=== PATIENT | female | born 1970 | race Caucasian/White ===

== ENCOUNTER → 2019-05-10 | Outpatient (CLI) | payer OTHER ==
[2019-05-10 13:07] LABS: IRON 49.5 ug/dL (37-170)
[2019-05-10 13:41] LABS: FERRITIN 9.06 ng/mL (11.1-264.0)
== END ==
LOC: OD 11:34
PROVIDERS: ATTEND Family Medicine
DX: R20.2 Paresthesia of skin (principal)
CPT/HCPCS: 36415; 82306; 82607; 82728; 83540; 84443

== ENCOUNTER → 2019-08-23 | Outpatient (CLI) | payer OTHER | LOC: OD 12:41 | PROVIDERS: ATTEND Family Medicine | DX: E34.9 Endocrine disorder, unspecified (principal) | CPT/HCPCS: 36415; 84702 ==

== ENCOUNTER → 2019-09-03 | Outpatient (CLI) | payer OTHER ==
--- NOTE | 2019-09-03 18:19 | RADIOLOGY REPORT (SQ) ---
EXAM DESCRIPTION: U/S NON-OB PELVIS W/O DOP COMPLETED DATE/TIME: 09/03/2019 6:06 pm REASON FOR STUDY: (E34.9)ENDOCRINE DISORDER, UNSPECIFIED E34.9 ENDOCRINE DISORDER, UNSPECIFIED COMPARISON: None. TECHNIQUE: Dynamic and static grayscale images acquired of the pelvis via transabdominal approach an d recorded on PACS. Additional selected color Doppler and spectral images recorded. LIMITATIONS: None. FINDINGS: UTERUS: Contour normal. No mass. ENDOMETRIAL STRIPE: No focal or generalized thickening. No masses. History of ablation 2 years earli er. CERVIX: 3.6 cm. No nabothian cysts. RIGHT OVARY AND DOPPLER: Normal size. No worrisome masses. Normal arterial vascular flow without evid ence for torsion. LEFT OVARY AND DOPPLER: Normal size. No worrisome masses. Normal arterial vascular flow without evide nce for torsion. FREE FLUID: None noted. OTHER: No other significant finding. MEASUREMENTS: UTERUS: 8.4 x 3 x 4.4 cm. ENDOMETRIAL STRIPE: 6 mm. RIGHT OVARY: 2.5 x 1.8 x 2.2 cm. LEFT OVARY: 2.3 x 2.7 x 1.7 cm. IMPRESSION: NORMAL PELVIC ULTRASOUND BY TRANSABDOMINAL TECHNIQUE. TECHNICAL DOCUMENTATION: JOB ID: [id number] [employer]- All Rights Reserved Rev-01/26 Reading location - IP/workstation name: [email or web address]
== END ==
LOC: RAD 17:40
PROVIDERS: ATTEND Family Medicine
DX: E34.9 Endocrine disorder, unspecified (principal)
CPT/HCPCS: 76856

== ENCOUNTER 2019-09-05 17:05 | Emergency (ER) | payer OTHER ==
[2019-09-05] MEDS ORDERED: DEXAMETHASONE SOD PHOS INJ 10 MG/1 ML VIAL IM ONE (20:22)
[2019-09-05] MEDS ORDERED: KETOROLAC TROMETHAMINE 60 MG/2 ML SDV IM ONE (20:22)
[2019-09-05] MEDS ORDERED: CYCLOBENZAPRINE HCL 10 MG TABLET PO ONE (20:22)
--- NOTE | 2019-09-05 20:25 | ER Document Report ---
ED Medical Screen (RME) - General Chief Complaint: Back Pain Stated Complaint: BACK PAIN Time Seen by Provider: 09/05/19 20:12 Primary Care Provider: MARY MESSINA MD [Primary Care Provider] - Follow up as needed Mode of Arrival: Ambulatory Information source: Patient Notes: 49-year-old female with history of carotid aneurysm back surgeries, abdominal surgeries presents emergency department with complaints of severe low back pain. Reports she works on the floor 12 hours she has not voided. She reports she was off work for over 2 months and just returned to work 2 weeks ago. She is done several 12-hour shifts. She is complaining of severe low back pain . She denies fever vomiting diarrhea. She denies urinary or bowel incontinence or retention. She does report numbness and tingling going down the back of her legs. She has had steroid injections into her back. Patient also reports she recently was diagnosed with high hCG levels and they are trying to figure out what is going on. Denies pain with void. I have greeted and performed a rapid initial assessment of this patient. A comprehensive ED assessment and evaluation of the patient, analysis of test results and completion of the medical decision making process will be conducted by additional ED providers. TRAVEL OUTSIDE OF THE [place] IN LAST 30 DAYS: No - Related Data Allergies/Adverse Reactions: levofloxacin [From Levaquin] Allergy (Verified 06/26/19 17:38) Past Medical History - Past Medical History Cardiac Medical History: Reports: Hx Hypertension Neurological Medical History: Reports: Hx Migraine Past Surgical History: Reports: Hx Abdominal Surgery - exp lap x2 /bowel resection/hernia x2, Hx Section - x 4, Hx Cholecystectomy, Hx Orthopedic Surgery - x3 lumbar, Hx Tubal Ligation, Hx Vascular Surgery - right carotid stent Physical Exam - Vital signs Vitals: Temp Pulse Resp BP Pulse Ox 98.7 F 70 18 120/74 95 09/05/19 17:29 09/05/19 17:29 09/05/19 17:29 09/05/19 17:29 09/05/19 17:29 Course - Vital Signs Vital signs: Temp Pulse Resp BP Pulse Ox 98.7 F 70 18 120/74 95 09/05/19 17:29 09/05/19 17:29 09/05/19 17:29 09/05/19 17:29 12/26/19 17:29 Doctor's Discharge - Discharge Referrals: MARY MESSINA MD [Primary Care Provider] - Follow up as needed
[2019-09-05 21:29] LABS: APPEARANCE,URINE SLIGHTLY-CLOUDY; BILIRUBIN,URINE NEGATIVE (NEGATIVE); COLOR,URINE YELLOW; GLUCOSE, URINE NEGATIVE (NEGATIVE); KETONES,URINE TRACE mg/dL (NEGATIVE); LEUKOCYTE ESTERASE,URINE NEGATIVE (NEGATIVE); NITRITE,URINE NEGATIVE (NEGATIVE); PROTEIN,URINE NEGATIVE (NEGATIVE); URINE SPECIFIC GRAVITY 1.025
[2019-09-06] MEDS ORDERED: OXYCODONE-ACETAMINOPHEN 5-325 MG TABLET PO ONE (00:14)
--- NOTE | 2019-09-06 00:17 | ER Document Report ---
HPI - HPI Time Seen by Provider: 09/05/19 20:12 Pain Level: 5 Context: Patient is a 49-year-old female that comes to the emergency department for chief complaint of lower back pain. She states she just went back to work working as a [employer], has been very active with her work and especially over the last 2 days she has started having sharp pains in her back with occasional radiation mainly down the right leg. She denies numbness, incontinence, impact injury, fever/chi lls, history of IV drug abuse. She has had 3 lumbar surgeries in the past including rods and discectomy. She does not currently have a spinal surgeon. Patient states she has been taking ibuprofen without any results, she was given Flexeril and Toradol along with dexamethasone and still has some pain but no severe pain. She denies any other complaints. - CONSTITUTIONAL Constitutional: DENIES: Fever, Chills - EENT EENT: DENIES: Sore Throat, Ear Pain, Eye problems - NEURO Neurology: DENIES: Headache, Weakness, Vision blurred, Dizzinesss / Vertigo - CARDIOVASCULAR Cardiovascular: DENIES: Chest pain - RESPIRATORY Respiratory: DENIES: Trouble Breathing, Coughing - GASTROINTESTINAL Gastrointestinal: DENIES: Abdominal Pain, Black / Bloody Stools - URINARY Urinary: DENIES: Dysuria, Urgency, Frequency - REPRODUCTIVE Reproductive: DENIES: : - MUSCULOSKELETAL Musculoskeletal: DENIES: Extremity pain Past Medical History - General Information source: Patient - Social History Smoking Status: Current Every Day Smoker Frequency of alcohol use: None Drug Abuse: None Lives with: Family Family History: Reviewed & Not Pertinent Patient has suicidal ideation: No Patient has homicidal ideation: No - Past Medical History Cardiac Medical History: Reports: Hx Heart Attack, Hx Hypertension Neurological Medical History: Reports: Hx Migraine Past Surgical History: Reports: Hx Abdominal Surgery - exp lap x2 /bowel resection/hernia x2, Hx Section - x 4, Hx Cholecystectomy, Hx Orthopedic Surgery - x3 lumbar, Hx Tubal Ligation, Hx Vascular Surgery - right carotid stent - Immunizations Hx Diphtheria, Pertussis, Tetanus Vaccination: Yes Vertical Provider Document - CONSTITUTIONAL General Appearance: WD/WN, No Apparent Distress - Pain with position changes but otherwise she is unremarkable in appearance - INFECTION CONTROL TRAVEL OUTSIDE OF THE [place] IN LAST 30 DAYS: No - HEENT HEENT: Atraumatic, Normal ENT Exam, Normocephalic - NECK Neck: Normal Inspection - RESPIRATORY Respiratory: Breath Sounds Normal, No Respiratory Distress - CARDIOVASCULAR Cardiovascular: Regular Rate, Regular Rhythm. negative: Tachycardia - GI/ABDOMEN Gastrointestinal: Abdomen Soft, Abdomen Non-Tender. negative: Abdomen Tender - BACK Back: negative: Normal Inspection - Positive straight leg raise on the right. Tender over the right paralumbar and right gluteal muscules; no midline tenderness, no saddle anesthesia, no signs of trauma. Normal upper and lower extremity range of motion, normal strength, normal distal neurovascular exam. - MUSCULOSKELETAL/EXTREMETIES Musculoskeletal/Extremeties: MAEW, FROM, Non-Tender - NEURO Level of Consciousness: Awake, Alert, Appropriate Motor/Sensory: No Motor Deficit, No Sensory Deficit - DERM Integumentary: Warm, Dry, No Rash Course - Re-evaluation Re-evalutation: There is some tenderness with straight leg raise on the right, some pain with palpation over the right paralumbar muscles and gluteal muscles, midline unremarkable, remaining exam is X unremarkable. Patient has obvious discomfort with position changes but otherwise is quite well-appearing. No neurological deficits, no fever, no reported trauma. Patient reports history of the same. Presentation is suggestive of sciatica, muscle spasm, however I have very low suspicion of spinal cord impingement or abscess. Vital signs unremarkable. Patient is not having good relief from the muscle relaxer given, as result she will be given stronger medication. She was given dexamethasone here. She will be provided with work release. She states she will follow-up with spinal surgery and she will return if she worsens. Stable at time of discharge. - Vital Signs Vital signs: Temp Pulse Resp BP Pulse Ox 98.7 F 70 18 120/74 95 09/05/19 17:29 09/05/19 17:29 09/05/19 17:29 09/05/19 17:29 09/05/19 17:29 - Laboratory Laboratory results interpreted by me: 09/05/19 20:48 Urine Ketones TRACE H Urine Urobilinogen 2.0 H Discharge - Discharge Clinical Impression: Lower back pain Qualifiers: Chronicity: acute Back pain laterality: right Sciatica presence: with sciatica Sciatica laterality: sciatica of right side Qualified Code(s): M54.41 - Lumbago with sciatica, right side Condition: Stable Disposition: HOME, SELF-CARE Additional Instructions: Your evaluation is most suggestive of herniated disc, sciatica, muscle spasms. Your urine shows dehydration, increase your hydration. Rest, apply heat to your lower back, you have been given steroids which should last in your system for the next several days to help treat your symptoms, take the muscle relaxer as prescribed using the precautions. Avoid lifting and twisting, follow-up with primary care and spinal surgery for additional evaluation and management. Return if you worsen including developing numbness, loss of bowel or bladder control, fever, or any other concerning or worsening symptoms. Prescriptions: Diazepam [Valium 5 mg Tablet] 1 - 2 tab PO TID PRN #12 tablet PRN Reason: Forms: Return to Work Referrals: MARY MESSINA MD [Primary Care Provider] - Follow up as needed
[2019-09-06 00:53] VITALS: BP 107/64
== END 2019-09-06 01:14 | disposition home or self-care (01) ==
LOC: ER 17:05
DX: M54.41 Lumbago with sciatica, right side (principal); F17.200 Nicotine dependence, unspecified, uncomplicated; I10 Essential (primary) hypertension; I25.2 Old myocardial infarction; Z90.49 Acquired absence of other specified parts of digestive tract
CPT/HCPCS: 99283; 96372; 81001; J1885; J1100

== ENCOUNTER 2019-10-29 20:05 | Inpatient (IN) | payer OTHER ==
[2019-10-29] MEDS ORDERED: NORMAL SALINE 1000 ML 1,000 ML IV ONE ×2 (20:20→23:58)
--- NOTE | 2019-10-29 20:30 | ER Document Report ---
ED General - General Chief Complaint: Overdose Stated Complaint: POSSIBLE OVERDOSE Time Seen by Provider: 10/29/19 20:13 Information source: Emergency Med Personnel Cannot obtain history due to: Intoxicated, Altered mental status Notes: 49-year-old female brought to the emergency department by EMS for an overdose. Patient was apparently having an argument with her partner and she took all of her recently filled alprazolam and promethazine. The bottles are completely empty and based off of if she had been taking them appropriately previously this would have been 81 mg of alprazolam and 1500 mg of promethazine. Patient told EMS that she was not trying to kill herself but would not clarify exactly what she was trying to do when she took this massive overdose. Patient was not able to answer questions for me. EMS did give activated charcoal. TRAVEL OUTSIDE OF THE [place] IN LAST 30 DAYS: No - Related Data Allergies/Adverse Reactions: levofloxacin [From Levaquin] Allergy (Verified 06/26/19 17:38) Past Medical History - General Information source: Emergency Med Personnel Cannot obtain history due to: Altered mental status - Social History Smoking Status: Current Some Day Smoker Family History: Other - Unable to review due to patient's altered mental status. - Past Medical History Cardiac Medical History: Reports: Hx Heart Attack, Hx Hypertension Neurological Medical History: Reports: Hx Migraine Past Surgical History: Reports: Hx Abdominal Surgery - exp lap x2 /bowel resection/hernia x2, Hx Section - x 4, Hx Cholecystectomy, Hx Orthopedic Surgery - x3 lumbar, Hx Tubal Ligation, Hx Vascular Surgery - right carotid stent - Immunizations Hx Diphtheria, Pertussis, Tetanus Vaccination: Yes Review of Systems - Review of Systems -: Yes ROS unobtainable due to patient's medical condition Physical Exam - Vital signs Vitals: Pulse Ox 94 10/29/19 20:11 Interpretation: Hypertensive - Notes Notes: GENERAL: Laying in bed, opens her eyes to verbal stimuli, does not answer questions, sleepy. HEAD: Normocephalic, atraumatic EYES: Pupils equal, round and reactive to light, extraocular movements intact. ENT: Oral mucosa moist, tongue midline. Lips and tongue are black from activated charcoal. NECK: Full range of motion, supple, trachea midline. LUNGS: Clear to auscultation bilaterally, no wheezes, rales or rhonchi, no respiratory distress. HEART: Regular rate and rhythm, no murmurs, gallops, rubs. ABDOMEN: Soft, nontender, nondistended, bowel sounds present in all 4 quadrants. EXTREMITIES: Moves all 4 extremities spontaneously, no edema, radial and dorsalis pedis pulses 2/4 bilaterally. No cyanosis. NEUROLOGICAL: Laying in bed, sleeping, opens her eyes to verbal stimuli, initial GCS 13, is E3 V3 M6, mutters nonsensical words, does not truly answer my questions, no facial droop, spontaneously moves all 4 extremities with 5 out of 5 muscle strength, biceps and patellar DTRs 2+ bilaterally. Cough spontaneously. Protecting her airway. SKIN: Warm, Dry, normal turgor. Course - Re-evaluation Re-evalutation: 10/30/19 00:01 On arrival GCS was 13, patient looked surprisingly good, blood pressure was actually elevated, patient had mild hypoxia with a pulse ox of between 90 to 94%, she was placed on 2 L via nasal cannula. Discussed with poison control and specifically discussed patient with the medical pulverizer tender who agreed that if she was intubated ketamine was the best medication as it would support her blood pressure. Poison control also gave standard recommendations to check electrolytes, check 4-hour salicylate and acetaminophen level and if she had seizures, which would not be expected, to give more benzodiazepines. We did discuss that with 81 mg of Xanax on board she is unlikely to need more benzodiazepines. Throughout the evening the patient became more and more somnolent, patient cur rently has a GCS of 7 and no longer has a gag reflex, no longer spontaneously coughs. Discussed case with Law Matson, ICU APC who is accepted the patient to the ICU, requests intubation prior to transfer to the ICU as she has become more and more sedated and now her blood pressure is trending downward. We will use ketamine to intubate and ketamine to continue sedation. Interestingly patient's end-tidal CO2 has been tracked and has not gone above 42 the whole time she has been here, it is not steadily climbing. 10/30/19 00:03 CBC unremarkable, venous blood gas shows mildly elevated CO2 at 47.5, otherwise unremarkable, CMP shows slightly elevated mag otherwise unremarkable, troponin is negative, initial alcohol, salicylates and acetaminophen levels are negative. EKG does not have any QT prolongation. 10/30/19 02:39 Patient was intubated without any difficulty. - Vital Signs Vital signs: Temp Pulse Resp BP Pulse Ox 97.5 F 86 18 102/91 H 100 10/30/19 02:05 10/30/19 02:05 10/30/19 02:05 10/30/19 02:05 10/30/19 02:05 - Laboratory Result Diagrams: 10/29/19 20:53 10/29/19 20:53 Laboratory results interpreted by me: 10/29/19 10/29/19 10/29/19 20:53 20:53 21:11 RDW 14.8 H Carbonic Acid 1.43 H ABG pCO2 47.5 H ABG HCO3 28.0 H ABG Total CO2 29.4 H Magnesium 2.4 H Salicylates < 1.0 L Acetaminophen < 10 L - EKG Interpretation by Me Additional EKG results interpreted by me: 10/29/19 20:28 EKG shows sinus rhythm at a rate of 80, slight left axis deviation, normal intervals, no ST segment elevations or depressions, slight T wave inversions in lead III, aVF, V3 3, V4 and V5 per my interpretation. Procedures - Intubation Orotracheal Airway evaluation: Normal anatomy Mallampati Classification: Class 2 Medications: Ketamine Intubation method: Orotracheal Blade type: Ham Blade size: 4 ETT size: 8.0 ETT secured at: Teeth ETT secured at (cm): 21 Breath Sounds after Intubation: Equal End tidal CO2 confirmed: Yes Ventilator settings: SIMV Tidal volume: 400 FiO2: 21 Respirations: 12 Pressure support: 10 PEEP: 5 Post Intubation Xray: Yes Intubation Complications: No complications Critical Care Note - Critical Care Note Total time excluding time spent on procedures (mins): 85 Discharge - Discharge Clinical Impression: Promethazine overdose Benzodiazepine overdose Qualifiers: Encounter type: initial encounter Injury intent: intentional self-harm Qualified Code(s): T42.4X2A - Poisoning by benzodiazepines, intentional self- harm, initial encounter Polysubstance overdose Qualifiers: Encounter type: initial encounter Injury intent: intentional self-harm Qualified Code(s): T50.902A - Poisoning by unspecified drugs, medicaments and biological substances, intentional self-harm, initial encounter Coma Qualifiers: Coma depth: [place] coma 3-8 Coma timing: at hospital admission Qualified Cod e(s): R40.2433 - [place] coma scale score 3-8, at hospital admission Condition: Serious Disposition: ADMITTED INPATIENT Admitting Provider: Rolo (Licensed Sales Producer) Unit Admitted: ICU
[2019-10-29 21:11] LABS: ABSOLUTE BASOPHILS # (AUTO) 0.1 10^3/uL (0.0-0.2); ABSOLUTE EOSINOPHILS # (AUTO) 0.3 10^3/uL (0.0-0.6); ABSOLUTE LYMPHOCYTES (AUTO) 2.5 10^3/uL (0.5-4.7); ABSOLUTE MONOCYTES (AUTO) 0.7 10^3/uL (0.1-1.4); ABSOLUTE NEUT (AUTO) 5.6 10^3/uL (1.7-8.2); BASOPHILS % (AUTO) 0.7 % (0-2); HEMATOCRIT 40.3 % (36.0-47.0); HEMOGLOBIN 13.7 g/dL (12.0-15.5); LYMPHOCYTES % (AUTO) 26.8 % (13-45); MEAN CORPUSCULAR VOLUME 82 fl (80-97); MONOCYTES % (AUTO) 7.9 % (3-13); RED CELL DISTRIBUTION WIDTH 14.8 % (11.5-14.0); SEGMENTED NEUTROPHILS % (AUTO) 61.6 % (42-78); TOTAL CELLS COUNTED % (AUTO) 100 %; WHITE BLOOD COUNT 9.2 10^3/uL (4.0-10.5)
[2019-10-29 21:25] LABS: ARTERIAL BLOOD BASE EXCESS 2.3 mmol/L; ARTERIAL BLOOD H2CO3 1.43 mmol/L (1.05-1.35); ARTERIAL BLOOD O2 SATURATION 96.5 % (94-98); ARTERIAL BLOOD PCO2 47.5 mmHg (35-45); ARTERIAL BLOOD PH 7.39 (7.35-7.45); ARTERIAL BLOOD TOTAL CO2 29.4 mmol/L (21-25)
[2019-10-29 21:26] LABS: ARTERIAL BLOOD FIO2 2L
[2019-10-29 21:35] LABS: ALBUMIN 4.3 g/dL (3.5-5.0); ALKALINE PHOSPHATASE 71 U/L (38-126); ANION GAP 7 (5-19); ASPARTATE AMINO TRANSFERASE 23 U/L (14-36); BILIRUBIN,DIRECT 0.3 mg/dL (0.0-0.4); BILIRUBIN,TOTAL 0.4 mg/dL (0.2-1.3); BLOOD UREA NITROGEN 14 mg/dL (7-20); CALCIUM 9.4 mg/dL (8.4-10.2); CARBON DIOXIDE 29 mmol/L (22-30); CHLORIDE 107 mmol/L (98-107); GLUCOSE 93 mg/dL (75-110); POTASSIUM 4.3 mmol/L (3.6-5.0)
[2019-10-29 21:36] LABS: ACETAMINOPHEN < 10 ug/mL (10-30); ALCOHOL < 10 mg/dL (NONE DETECTED); SALICYLATE < 1.0 mg/dL (2.0-20.0)
[2019-10-29 21:37] LABS: PLATELET COUNT 222 10^3/uL (150-450)
[2019-10-29] MEDS ORDERED: KETAMINE HCL INJ 500 MG/10 ML VIAL ONE (23:45)
[2019-10-29] MEDS ORDERED: KETAMINE HCL INJ 500 MG/10 ML VIAL IV ONE (23:58)
[2019-10-30] MEDS ORDERED: KETAMINE HCL INJ 500 MG/10 ML VIAL IV ONE (00:01)
[2019-10-30] MEDS: RINGERS SOLUTION,LACTATED 1,000 ML IV PRN ×3 (00:29→21:47)
[2019-10-30] MEDS ORDERED: FAMOTIDINE INJ/PF 20 MG/2 ML SDV IV ONE (00:30)
[2019-10-30 00:43] LABS: APPEARANCE,URINE CLEAR; BILIRUBIN,URINE NEGATIVE (NEGATIVE); COLOR,URINE STRAW; GLUCOSE, URINE NEGATIVE (NEGATIVE); KETONES,URINE NEGATIVE (NEGATIVE); LEUKOCYTE ESTERASE,URINE NEGATIVE (NEGATIVE); NITRITE,URINE NEGATIVE (NEGATIVE); PROTEIN,URINE NEGATIVE (NEGATIVE); URINE SPECIFIC GRAVITY 1.005; UROBILINOGEN,URINE NEGATIVE mg/dL (<2.0)
--- NOTE | 2019-10-30 00:50 | RADIOLOGY REPORT (SQ) ---
EXAM DESCRIPTION: XR CHEST 1 VIEW COMPLETED DATE/TME: 10/30/2019 00:11 CLINICAL HISTORY: intubation COMPARISON: None. FINDINGS: Single frontal view of the chest. Tubes and lines: Endotracheal tube with tip located approximately tip below the diaphragm. Leads overlie the chest. Cardiomediastinal silhouette: Heart is not enlarged. Lungs: Low lung volumes. No pneumothorax, large effusion, or focal airspace consolidation. Bones: No acute osseous abnormality identified. Upper abdomen: No additional findings. IMPRESSION: 1. Endotracheal tube in appropriate position. No acute pneumonic process.
[2019-10-30 00:58] LABS: URINE AMPHETAMINES SCREEN NEGATIVE; URINE BARBITURATES SCREEN NEGATIVE; URINE COCAINE SCREEN NEGATIVE; URINE MARIJUANA (THC) SCREEN NEGATIVE; URINE METHADONE SCREEN NEGATIVE; URINE PHENCYCLIDINE SCREEN NEGATIVE
[2019-10-30 01:00] LABS: URINE BENZODIAZEPINES SCREEN UNCONFIRMED POSITIVE
[2019-10-30 01:21] LABS: ACETAMINOPHEN < 10 ug/mL (10-30); SALICYLATE < 1.0 mg/dL (2.0-20.0)
[2019-10-30 01:34] LABS: ARTERIAL BLOOD BASE EXCESS -1.8 mmol/L; ARTERIAL BLOOD H2CO3 1.66 mmol/L (1.05-1.35); ARTERIAL BLOOD HCO3 25.7 mmol/L (20-24); ARTERIAL BLOOD O2 SATURATION 97.6 % (94-98); ARTERIAL BLOOD PCO2 55.1 mmHg (35-45); ARTERIAL BLOOD PH 7.29 (7.35-7.45); ARTERIAL BLOOD PO2 113.2 mmHg (80-100); ARTERIAL BLOOD TOTAL CO2 27.4 mmol/L (21-25)
[2019-10-30 01:35] LABS: ARTERIAL BLOOD FIO2 40%
[2019-10-30] MEDS ORDERED: KETAMINE HCL INJ 500 MG/10 ML VIAL IV PRN (01:55)
[2019-10-30] MEDS ORDERED: INFLUENZA QUAD (6MOS+) 2019-20 VAC 0.5 ML SYR IM ONE (02:38)
[2019-10-30 04:28] LABS: ARTERIAL BLOOD BASE EXCESS -1.2 mmol/L; ARTERIAL BLOOD H2CO3 1.16 mmol/L (1.05-1.35); ARTERIAL BLOOD HCO3 23.4 mmol/L (20-24); ARTERIAL BLOOD O2 SATURATION 97.4 % (94-98); ARTERIAL BLOOD PCO2 38.7 mmHg (35-45); ARTERIAL BLOOD PO2 97.2 mmHg (80-100); ARTERIAL BLOOD TOTAL CO2 24.6 mmol/L (21-25)
[2019-10-30 04:29] LABS: ARTERIAL BLOOD FIO2 28%
[2019-10-30] MEDS ORDERED: DEXMEDETOMIDINE IN 0.9 % NACL 400 MCG/100 ML RTUPB IV ONE (06:02)
[2019-10-30] MEDS: DEXMEDETOMIDINE IN 0.9 % NACL 400 MCG/100 ML RTUPB IV PRN ×4 (06:02→20:14)
[2019-10-30] MEDS ORDERED: DEXTROSE 40% GEL 15 GM TUBE PO PRN ×2 (09:11)
[2019-10-30] MEDS ORDERED: GLUCAGON,HUMAN RECOMB 1 MG INJ IM PRN (09:11)
[2019-10-30] MEDS ORDERED: DEXTROSE 50%-WATER 25 GM/50 ML DISP.SYRIN IV PRN ×2 (09:11)
--- NOTE | 2019-10-30 09:38 | CRITICAL CARE ADMISSION REPORT ---
HPI Date:: 10/30/19 Time:: 23:30 Reason for ICU Reason:: Encounter for weaning from mechanical ventilator; Drug Overdose HPI: Nancy Mueller is a 49-year-old female who presented to [facility] via EMS following a drug overdose reportedly consuming 81 mg of Xanax and 1500 mg of Phenergan approximately 1930 p.m. on 10/29/2019. EMS reported administering activated charcoal prior to arrival. Patient was reportedly having an argument with her partner and she took all of her recently filled alprazolam and promethazine. The bottles are completely empty and based off of if she had been taking them appropriately previously. Patient told EMS that she was not trying to kill herself but would not clarify exactly what she was trying to do when she took this massive overdose. Upon presentation to [facility], the patient's speech was incomprehensible already with a deteriorating mental status so we were not able to confirm patient's intentions with the medication consumption. The patient's mental status slowly declined to a GCS of 7 for which she eventually lost the ability to cough and protect her airway, subsequently resulting in intubation. Patient will be admitted to ICU for management of mechanical ventilator, ketamine infusion to counter hypotension, monitor for QT prolongation or cardiac arrhythmias, and awaiting metabolization of the Xanax and Phenergan. [facility] was contacted by the ER physician. History obtained from:: medical record and Dr Ramos - Diagnosis/Plan (1) Encounter for weaning from ventilator Is this a current diagnosis for this admission?: Yes Plan: Continue with current rate/volume control settings. Obtain ABG and adjust ventilator as necessary. Anticipate SBT later this afternoon vs tomorrow depending on metabolization of overdose medications. Prevent ventilator associated event by elevating HOB, oral care q4h, and weaning from ventilator as soon as mental status allows. (2) Suicide attempt by benzodiazepine overdose Is this a current diagnosis for this admission?: Yes Plan: Suicide precautions for now. When pt extubated, needs a psychological evaluation. Evaluate need for social work depending on home environment situation after discussing with patient. (3) Coma Qualifiers: Coma depth: [place] coma 3-8 Coma timing: at hospital admission Qualified Code(s): R40.2433 - [place] coma scale score 3-8, at hospital admission Is this a current diagnosis for this admission?: Yes Plan: Routine neurological monitoring for improvement with neurological recovery. Limit sedating drugs with prolonged half lives to better assess for when able to wean ventilator. Supportive care. (4) Polysubstance overdose Qualifiers: Encounter type: initial encounter Injury intent: intentional self-harm Qualified Code(s): T50.902A - Poisoning by unspecified drugs, medicaments and biological substances, intentional self-harm, initial encounter Is this a current diagnosis for this admission?: Yes Plan: Clarify reason for Xanax/Phenergan once extubated. I see no historical Dx of anxiety or chronic nausea during my chart review. - . Plan Summary: Admit to ICU to manage mechanical ventilator and hemodynamics. Routine neurological monitoring to determine when metabolization of X anax/Phenergan occurring. Utilizing Ketamine infusion for sedation to counter effects of Xanax/Phenergan as patient's blood pressure was beginning to trend downward in the ED prior to intubation. Will monitor for significant HTN or tachycardia as well as need to change sedation for facilitation of ventilator weaning when time is appropriate based on above. Will obtain ABG and adjust ventilator as necessary. Oral care while on ventilator. Obtain CXR in the AM. NPO, place OGT to LIWS, LR at 100 ml/hr for hydration. Anticipate pt will be extubated and started on a diet within next 24 hrs. Famotidine for SUP while mechanically ventilated. Place indwelling urinary catheter for strict I&O. No indication for antibiotics at this time. Start accuchecks q6h monitoring for hypo/hyperglycemia. Elevate HOB >30, turn q2h, suicide precautions for now. Past Medical History Cardiac Medical History: Reports: Myocardial Infarction, Hypertension Neurological Medical History: Reports: Migraine Past Surgical History Past Surgical History: Reports: Section - x 4, Cholecystectomy, Orthopedic Surgery - x3 lumbar, Tubal Ligation, Vascular Surgery - right carotid stent Social/Family History - Social History Smoking Status: Current Some Day Smoker - Medication/Allergies Allergies/Adverse Reactions: levofloxacin [From Levaquin] Allergy (Verified 06/26/19 17:38) Review of Systems ROS unobtainable: Due to endotracheal tube, Due to mental status Physical Exam Vital Signs: Temp Pulse Resp BP Pulse Ox 98.1 F 20 132/90 H 99 10/29/19 20:20 10/29/19 23:01 10/29/19 23:01 02/18/20 23:01 Intake & Output 10/28/19 10/29/19 10/30/19 06:59 06:59 06:59 Intake Total 1000 Balance 1000 Weight 82.4 kg Weight/Height Weight 82.4 kg General appearance: PRESENT: no acute distress, obese, other - not following commands or opening eyes Head exam: PRESENT: atraumatic, normocephalic Eye exam: PRESENT: conjunctiva pink, PERRLA - though sluggish and 5 mm bilaterally. ABSENT: EOMI - unable to assess due to comatose state, nystagmus, periorbital swelling, scleral icterus Ear exam: PRESENT: normal external ear exam Mouth exam: PRESENT: moist, neck supple, tongue midline Throat exam: ABSENT: post pharyngeal erythema Neck exam: PRESENT: full ROM. ABSENT: JVD, lymphadenopathy, tenderness, tracheal deviation Respiratory exam: PRESENT: clear to auscultation tiffany, symmetrical, unlabored. ABSENT: accessory muscle use Cardiovascular exam: PRESENT: RRR, +S1, +S2. ABSENT: clicks, gallop, rubs, systolic murmur Pulses: PRESENT: normal radial pulses, +2 pedal pulses bilateral Vascular exam: PRESENT: normal capillary refill GI/Abdominal exam: PRESENT: hypoactive bowel sounds, soft. ABSENT: distended, rebound, tenderness Rectal exam: PRESENT: deferred Gentrourinary exam: ABSENT: urethral discharge Extremities exam: ABSENT: pedal edema, tenderness Musculoskeletal exam: PRESENT: normal inspection Neurological exam: PRESENT: other - depressed mental status, moves all extremities though there is notable weakness to all 4 while attempting to move them Skin exam: PRESENT: dry, intact, normal color, warm Tubes/Lines: PRESENT: Endotracheal Tube Laboratory/Radiographs Laboratory Results: 10/29/19 20:53 10/29/19 20:53 10/29/19 10/29/19 10/29/19 20:53 20:53 21:11 WBC 9.2 RBC 4.90 Hgb 13.7 Hct 40.3 MCV 82 MCH 28.0 MCHC 34.0 RDW 14.8 H Plt Count 222 Seg Neutrophils % 61.6 Carbonic Acid 1.43 H HCO3/H2CO3 Ratio 19:1 ABG pH 7.39 ABG pCO2 47.5 H ABG pO2 88.0 ABG HCO3 28.0 H ABG O2 Saturation 96.5 ABG Base Excess 2.3 FiO2 2L Sodium 142.7 Potassium 4.3 Chloride 107 Carbon Dioxide 29 Anion Gap 7 BUN 14 Creatinine 0.67 Est GFR ( Amer) > 60 Glucose 93 Calcium 9.4 Magnesium 2.4 H Total Bilirubin 0.4 AST 23 Alkaline Phosphatase 71 Total Protein 7.0 Albumin 4.3 10/29/19 20:53 Troponin I < 0.012 All labs, radiographs, diagnostic studies and EKGs were personally reviewed: Yes Critical Time Critical Time (minutes): 60 -: The care of a critically ill patient is dynamic. This note represents a static moment in the admission process. Orders and treatments may be given simultan eously and urgently, and time is not termite control representative of the treatment process. This patient requires Critical Care secondary to life threatening organ or limb dysfunction. Without Critical Care services, the patient is at risk for increased mortality and morbidity.
[2019-10-30] MEDS: ENOXAPARIN SODIUM INJ 40 MG/0.4 ML DISP.SYRIN SUBCUT SCH (10:50)
[2019-10-30] MEDS: FAMOTIDINE INJ/PF 20 MG/2 ML SDV IV SCH ×2 (10:50→21:46)
[2019-10-30] MEDS ORDERED: PHARMACY COMMUNICATION ORDER MC NR (12:00)
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
--- NOTE | 2019-10-30 20:30 | Progress Note ---
Provider Note Provider Note: Discussed case and care with admitting BELT BUILDER HELPER, Law Matson Agree with plan, care and findings. Agree with treatment Examined at bedside and reviewed labs, findings and xrays Nursing reports charcol like substance in ETT On Ketamine and Precedex Significant social/family issues Reviewed ECG: Qtc is acceptable. There are subtle lateral ST segment changes however we do not have previous to compare. Troponin results have been unremarkable Continue supportive care continue to follow troponins and EKG. Decrease and wean sedation and watch for suitability for liberation from the ventilator. It is already considered for involuntary committal and psychiatry and social services counselor are assisting. Patient seen on multidisciplinary rounds after being admitted. Total critical care time including discussion with family 38 minutes
--- NOTE | 2019-10-30 22:34 | EKG REPORT ---
SEVERITY:- BORDERLINE ECG - SINUS RHYTHM PROBABLE LEFT ATRIAL ABNORMALITY BORDERLINE T ABNORMALITIES, ANT-LAT LEADS : Confirmed by: Mario Hough 30-Oct-2019 22:34:00
--- NOTE | 2019-10-30 22:35 | EKG REPORT ---
SEVERITY:- BORDERLINE ECG - SINUS RHYTHM BORDERLINE T ABNORMALITIES, ANTERIOR LEADS : Confirmed by: Mario Hough 30-Oct-2019 22:34:36
--- NOTE | 2019-10-30 22:35 | EKG REPORT ---
SEVERITY:- NORMAL ECG - SINUS RHYTHM NONSPECIFIC ST-T CHANGES : Confirmed by: Mario Hough 30-Oct-2019 22:34:27
[2019-10-31] MEDS: DEXMEDETOMIDINE IN 0.9 % NACL 400 MCG/100 ML RTUPB IV PRN (01:24)
[2019-10-31] MEDS ORDERED: ACETAMINOPHEN SOLN 325 MG/10.15 ML UDCUP ONE (07:57)
[2019-10-31] MEDS ORDERED: ACETAMINOPHEN 325 MG TABLET PO ONE (07:58)
[2019-10-31 08:30] LABS: APPEARANCE,URINE CLEAR; BILIRUBIN,URINE NEGATIVE (NEGATIVE); COLOR,URINE STRAW; GLUCOSE, URINE NEGATIVE (NEGATIVE); KETONES,URINE NEGATIVE (NEGATIVE); LEUKOCYTE ESTERASE,URINE NEGATIVE (NEGATIVE); NITRITE,URINE NEGATIVE (NEGATIVE); PROTEIN,URINE NEGATIVE (NEGATIVE); URINE SPECIFIC GRAVITY 1.005; UROBILINOGEN,URINE NEGATIVE mg/dL (<2.0)
[2019-10-31 08:53] LABS: ABSOLUTE BASOPHILS # (AUTO) 0.1 10^3/uL (0.0-0.2); ABSOLUTE EOSINOPHILS # (AUTO) 0.1 10^3/uL (0.0-0.6); ABSOLUTE LYMPHOCYTES (AUTO) 1.2 10^3/uL (0.5-4.7); ABSOLUTE MONOCYTES (AUTO) 0.8 10^3/uL (0.1-1.4); ABSOLUTE NEUT (AUTO) 9.1 10^3/uL (1.7-8.2); BASOPHILS % (AUTO) 0.5 % (0-2); EOSINOPHILS % (AUTO) 1.3 % (0-6); HEMATOCRIT 36.2 % (36.0-47.0); HEMOGLOBIN 12.2 g/dL (12.0-15.5); LYMPHOCYTES % (AUTO) 10.4 % (13-45); MEAN CORPUSCULAR HEMOGLOBIN 27.6 pg (27.0-33.4); MEAN CORPUSCULAR HGB CONC 33.7 g/dL (32.0-36.0); MEAN CORPUSCULAR VOLUME 82 fl (80-97); MONOCYTES % (AUTO) 6.9 % (3-13); PLATELET COUNT 192 10^3/uL (150-450); RED BLOOD COUNT 4.42 10^6/uL (3.72-5.28); RED CELL DISTRIBUTION WIDTH 14.6 % (11.5-14.0); SEGMENTED NEUTROPHILS % (AUTO) 80.9 % (42-78); TOTAL CELLS COUNTED % (AUTO) 100 %; WHITE BLOOD COUNT 11.2 10^3/uL (4.0-10.5)
[2019-10-31 09:14] LABS: ALBUMIN 3.6 g/dL (3.5-5.0); ALKALINE PHOSPHATASE 76 U/L (38-126); ANION GAP 7 (5-19); ASPARTATE AMINO TRANSFERASE 15 U/L (14-36); BILIRUBIN,TOTAL 0.6 mg/dL (0.2-1.3); BLOOD UREA NITROGEN 9 mg/dL (7-20); CALCIUM 8.7 mg/dL (8.4-10.2); CARBON DIOXIDE 25 mmol/L (22-30); CHLORIDE 108 mmol/L (98-107); CREATINE KINASE 58 U/L (30-135); GLUCOSE 118 mg/dL (75-110); POTASSIUM 3.4 mmol/L (3.6-5.0); TOTAL PROTEIN 5.9 g/dL (6.3-8.2)
[2019-10-31] MEDS: ENOXAPARIN SODIUM INJ 40 MG/0.4 ML DISP.SYRIN SUBCUT SCH (10:25)
[2019-10-31] MEDS: RINGERS SOLUTION,LACTATED 1,000 ML IV PRN (10:26)
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
[2019-10-31] MEDS: ACETAMINOPHEN 325 MG TABLET PO PRN (15:55)
[2019-10-31] MEDS ORDERED: KETOROLAC TROMETHAMINE INJ/PF 30 MG/1 ML SDV IV ONE (16:14)
[2019-10-31] MEDS ORDERED: KETOROLAC TROMETHAMINE INJ/PF 30 MG/1 ML SDV ONE (16:41)
[2019-10-31] MEDS ORDERED: POTASSIUM CHLORIDE 10 MEQ TABLET.ER PO ONE (18:02)
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
[2019-11-01] MEDS: ACETAMINOPHEN 325 MG TABLET PO PRN (03:56)
[2019-11-01] MEDS: RINGERS SOLUTION,LACTATED 1,000 ML IV PRN ×2 (04:16→06:58)
[2019-11-01 04:26] LABS: ABSOLUTE EOSINOPHILS # (AUTO) 0.2 10^3/uL (0.0-0.6); ABSOLUTE LYMPHOCYTES (AUTO) 1.4 10^3/uL (0.5-4.7); ABSOLUTE MONOCYTES (AUTO) 0.9 10^3/uL (0.1-1.4); ABSOLUTE NEUT (AUTO) 8.8 10^3/uL (1.7-8.2); BASOPHILS % (AUTO) 0.3 % (0-2); EOSINOPHILS % (AUTO) 1.6 % (0-6); HEMATOCRIT 36.4 % (36.0-47.0); HEMOGLOBIN 12.4 g/dL (12.0-15.5); LYMPHOCYTES % (AUTO) 12.1 % (13-45); MEAN CORPUSCULAR HEMOGLOBIN 27.8 pg (27.0-33.4); MEAN CORPUSCULAR HGB CONC 34.1 g/dL (32.0-36.0); MEAN CORPUSCULAR VOLUME 82 fl (80-97); MONOCYTES % (AUTO) 7.8 % (3-13); PLATELET COUNT 183 10^3/uL (150-450); RED BLOOD COUNT 4.46 10^6/uL (3.72-5.28); RED CELL DISTRIBUTION WIDTH 15.1 % (11.5-14.0); SEGMENTED NEUTROPHILS % (AUTO) 78.2 % (42-78); TOTAL CELLS COUNTED % (AUTO) 100 %; WHITE BLOOD COUNT 11.3 10^3/uL (4.0-10.5)
[2019-11-01 04:42] LABS: ALBUMIN 3.9 g/dL (3.5-5.0); ALKALINE PHOSPHATASE 76 U/L (38-126); ANION GAP 5 (5-19); ASPARTATE AMINO TRANSFERASE 19 U/L (14-36); BILIRUBIN,DIRECT 0.1 mg/dL (0.0-0.4); BILIRUBIN,TOTAL 0.5 mg/dL (0.2-1.3); BLOOD UREA NITROGEN 7 mg/dL (7-20); CALCIUM 8.7 mg/dL (8.4-10.2); CARBON DIOXIDE 27 mmol/L (22-30); CHLORIDE 110 mmol/L (98-107); CREATINE KINASE 49 U/L (30-135); GLUCOSE 109 mg/dL (75-110); PHOSPHORUS 3.6 mg/dL (2.5-4.5); POTASSIUM 3.7 mmol/L (3.6-5.0); TOTAL PROTEIN 6.5 g/dL (6.3-8.2)
[2019-11-01 08:38] LABS: A TYPE INFLUENZA AG NEGATIVE (NEGATIVE); B INFLUENZA AG NEGATIVE (NEGATIVE)
[2019-11-01] MEDS: ENOXAPARIN SODIUM INJ 40 MG/0.4 ML DISP.SYRIN SUBCUT SCH (10:21)
[2019-11-01] MEDS ORDERED: SUMATRIPTAN SUCCINATE 100 MG TABLET PO PRN (10:33)
[2019-11-01] MEDS ORDERED: (PENDING PHARMACY ID) (Butalb/Acetaminophen/Caffeine [Butalb-Acetamin-Caff 50-300-40] 1 CA PO PRN (10:33)
[2019-11-01] MEDS ORDERED: BUTALB/ACETAMINOPHEN/CAFFEINE 1 TAB EACH PO PRN (10:44)
--- NOTE | 2019-11-01 10:44 | PDOC CRITICAL CARE PROG REPORT ---
General Date:: 11/01/19 ICU Day:: 2 Hospital Day:: 2 Resuscitation Status: Full Code Medical Power of [employer] Administrator: Daughter Events in the past 12 to 24 Hours:: Extubated, downgraded. Review of systems relevant to events:: Neuro, psych Reason for ICU Addmission:: Encounter for weaning from mechanical ventilator; Drug Overdose - Medications: Medications reviewed and adjusted accordingly: Yes Vasopressors:: None Sedation:: None Physical Exam Vital Signs: Temp Pulse Resp BP Pulse Ox 99.5 F 97 21 H 134/85 H 93 11/01/19 08:00 11/01/19 08:00 11/01/19 08:00 11/01/19 08:00 11/01/19 08:00 Intake & Output 10/31/19 11/01/19 11/02/19 06:59 06:59 06:59 Intake Total 2270 3317 Output Total 2205 3950 65 Balance 65 -633 -65 Weight 81.2 kg 80.2 kg Weight/Height Weight 80.2 kg Height 5 ft 6 in General appearance: PRESENT: no acute distress, well-developed, well-nourished Head exam: PRESENT: atraumatic, normocephalic Eye exam: PRESENT: conjunctiva pink, EOMI, PERRLA. ABSENT: scleral icterus Ear exam: PRESENT: normal external ear exam Mouth exam: PRESENT: moist, tongue midline Respiratory exam: PRESENT: clear to auscultation tiffany. ABSENT: rales, rhonchi, wheezes Cardiovascular exam: PRESENT: RRR. ABSENT: diastolic murmur, rubs, systolic murmur Pulses: PRESENT: normal dorsalis pedis pul GI/Abdominal exam: PRESENT: normal bowel sounds, soft. ABSENT: distended, guarding, mass, organolmegaly, rebound, tenderness Gentrourinary exam: PRESENT: indwelling catheter Extremities exam: PRESENT: full ROM. ABSENT: calf tenderness, clubbing, pedal edema Musculoskeletal exam: PRESENT: normal inspection Neurological exam: PRESENT: alert, awake, oriented to person, oriented to place, oriented to time, oriented to situation, CN II-XII grossly intact. ABSENT: motor sensory deficit Psychiatric exam: PRESENT: flat affect Skin exam: PRESENT: dry, intact, warm. ABSENT: cyanosis, rash Laboratory/Radiographs Laboratory Results: 11/01/19 03:54 11/01/19 03:54 11/01/19 11/01/19 03:54 03:54 WBC 11.3 H RBC 4.46 Hgb 12.4 Hct 36.4 MCV 82 MCH 27.8 MCHC 34.1 RDW 15.1 H Plt Count 183 Seg Neutrophils % 78.2 H Sodium 142.3 Potassium 3.7 Chloride 110 H Carbon Dioxide 27 Anion Gap 5 BUN 7 Creatinine 0.61 Est GFR ( Amer) > 60 Glucose 109 Calcium 8.7 Phosphorus 3.6 Magnesium 2.1 Total Bilirubin 0.5 AST 19 Alkaline Phosphatase 76 Total Protein 6.5 Albumin 3.9 10/29/19 10/30/19 10/30/19 20:53 20:43 20:43 Creatine Kinase 52 Troponin I < 0.012 < 0.012 10/31/19 10/31/19 11/01/19 08:37 17:20 03:54 Creatine Kinase 58 65 49 Troponin I Impressions: Chest X-Ray 10/30/19 00:11 IMPRESSION: 1. Endotracheal tube in appropriate position. No acute pneumonic process. All labs, radiographs, diagnostic studies and EKGs were personally reviewed: Yes In addition, reports of radiographic and diagnostic studies were read: Yes Assessment and Plan - Diagnosis (1) Fever Qualifiers: Fever type: drug-induced Qualified Code(s): R50.2 - Drug induced fever Is this a current diagnosis for this admission?: Yes Plan: This is not obvious. Before full medical clearance would like to see temp down. OK for medical floor. (2) Polysubstance overdose Qualifiers: Encounter type: initial encounter Injury intent: intentional self-harm Qualified Code(s): T50.902A - Poisoning by unspecified drugs, medicaments and biological substances, intentional self-harm, initial encounter Is this a current diagnosis for this admission?: Yes Plan: This was an intentional OD, the extent of polysubstance abuse not clear. Patient is on a number of controlled substances. We will hold phenergan, continue benzodiazepines for leona to prevent WD syndrome. (3) Suicide attempt by benzodiazepine overdose Is this a current diagnosis for this admission?: Yes Plan: We will continue the IVC and when temp down she can be transfererred to psych. Plan Summary: Tylenol, await final cultures. Critical Time Critical Time (minutes): 30 Level of Care: MEDICAL Anticipated discharge: Other Within: within 24 hours -: 1. The care of a critical patient is a dynamic process. This note is a technical support representative synopsis but static in nature. The timeframe for treatments given in order is not necessarily the actual time these treatments may have been done. 2. This patient requires critical care secondary to ongoing requirements for therapy not offered or safe outside the critical care environment. Transfer to a lower level of care will result in altered life or limb morbidity and mortality. 3. Multidisciplinary rounds completed. 4. ABCDE bundle addressed.
[2019-11-01] MEDS: VALSARTAN 160 MG TABLET PO SCH (11:28)
[2019-11-01] MEDS: AMLODIPINE BESYLATE 10 MG TABLET PO SCH (11:28)
[2019-11-01] MEDS: METOPROLOL SUCCINATE 50 MG TAB.SR.24H PO SCH (11:28)
[2019-11-01] MEDS: SERTRALINE HCL 50 MG TABLET PO SCH (11:29)
[2019-11-01] MEDS: TRAMADOL HCL 50 MG TABLET PO PRN ×2 (15:23→20:23)
[2019-11-01] MEDS: ALPRAZOLAM 0.5 MG TABLET PO PRN (20:24)
[2019-11-02] MEDS ORDERED: SUMATRIPTAN SUCCINATE 100 MG TABLET ONE (01:52)
[2019-11-02] MEDS ORDERED: BUTALB/ACETAMINOPHEN/CAFFEINE 1 TAB EACH ONE (01:53)
[2019-11-02] MEDS: ALPRAZOLAM 0.5 MG TABLET PO PRN (05:43)
[2019-11-02] MEDS: TRAMADOL HCL 50 MG TABLET PO PRN (05:43)
[2019-11-02] MEDS ORDERED: (PENDING PHARMACY ID) (Metoprolol Succinate [Toprol Xl] 200 MG) PO SCH (10:00)
[2019-11-02] MEDS ORDERED: ASPIRIN 81 MG TABLET, ENT COATED PO SCH (10:00)
[2019-11-02] MEDS ORDERED: PANTOPRAZOLE SODIUM 40 MG TABLET.DR PO SCH (10:00)
[2019-11-02] MEDS ORDERED: (PENDING PHARMACY ID) (Amlodipine Besylate/Valsartan [Amlodipine-Valsartan 10-320 Mg] 1 TA PO SCH (10:00)
[2019-11-02] MEDS: VALSARTAN 160 MG TABLET PO SCH (11:00)
[2019-11-02] MEDS: ENOXAPARIN SODIUM INJ 40 MG/0.4 ML DISP.SYRIN SUBCUT SCH (11:00)
[2019-11-02] MEDS: AMLODIPINE BESYLATE 10 MG TABLET PO SCH (11:01)
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
[2019-11-02] MEDS: SERTRALINE HCL 50 MG TABLET PO SCH (11:02)
[2019-11-02] MEDS: METOPROLOL SUCCINATE 50 MG TAB.SR.24H PO SCH (11:02)
[2019-11-02 11:30] VITALS: BP 120/88
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
== END 2019-11-02 11:41 | disposition home or self-care (01) | DRG 918 ==
LOC: ER 20:05 → OBSVTOIN 23:30 → EH 23:30 → ICU 23:31 → UNDOADMOB 10-30 00:12 → INTOOBSV 10-30 00:12 → EH 10-30 00:12 → ICU 10-30 02:30 → EH 10-30 02:30
PROVIDERS: ADMIT Internal Medicine Critical Care Medicine; ATTEND Internal Medicine Critical Care Medicine
PROC: 0BH17EZ Insertion of Endotracheal Airway into Trachea, Via Natural or Artificial Opening (ICD-10-PCS; principal; 2019-10-30)
PROC: 5A1945Z Respiratory Ventilation, 24-96 Consecutive Hours (ICD-10-PCS; 2019-10-30)
DX: T42.4X2A Poisoning by benzodiazepines, intentional self-harm, initial encounter (principal); T42.6X2A Poisoning by other antiepileptic and sedative-hypnotic drugs, intentional self-harm, initial encounter; F17.200 Nicotine dependence, unspecified, uncomplicated; R50.2 Drug induced fever; R40.2433 Glasgow coma scale score 3-8, at hospital admission; F41.9 Anxiety disorder, unspecified; F32.9 Major depressive disorder, single episode, unspecified; Y92.009 Unspecified place in unspecified non-institutional (private) residence as the place of occurrence of the external cause; Z79.82 Long term (current) use of aspirin; I25.2 Old myocardial infarction; Z90.49 Acquired absence of other specified parts of digestive tract; Z88.1 Allergy status to other antibiotic agents; Z63.0 Problems in relationship with spouse or partner
CPT/HCPCS: 36415; 51702; 71045; 80053; 80307; 81001; 82550; 82803; 82962; 83605; 83735; 84100; 84484; 85025; 87040; 87804; 93005; 93010; 94002; 94003; 94799; 96360; 99231; 99239; 99291; 99292; J1650; J1885; J3490; J7030; J7120; S0028